=== PATIENT | female | born 1945 | race Caucasian/White ===

== ENCOUNTER → 2016-03-31 | Outpatient (CLI) | payer OTHER ==
--- NOTE | 2016-03-31 15:01 | CT ---
CT Coronary Calcium Score History: Distant history of smoking. No cancer history. Comparison: Calcium scoring study April 13, 2011. Technique: Prospectively gated noncontrast images through the chest without contrast. Dose reduction techniques were utilized. Findings: Left Main Artery (LMA): 0 Left Anterior Descending (LAD): 294 Left Circumflex (LCX): 496 Right Coronary Artery (RCA): 0 Posterior Descending Artery (PDA): 0 Calcium score according to the Agatston-Janowitz criteria is 790 which is consistent with the 90th pe rcentile for age (previously 89). This means that 10% of patients of this age group have calcium sc ore higher than this patient. Noncardiac evaluation: There are no significant pulmonary nodules. There is mild bronchiectasis in th e medial segment right middle lobe and mild basilar scarring/atelectasis. A large hiatal hernia is ag ain noted. A small hypodensity in the left lobe of the liver is not significantly changed, too small to characterize, statistically likely to represent a cyst. Impression: 1. A calcium score of 790 places the patient in the 90th percentile rank for age. There is high likel ihood of significant coronary artery stenosis. Recommend cardiology consultation. 2. Large hiatal hernia. 3. Additional findings as above. Findings discussed with Radha Morse MD 03/31/2016 at 15:09.
== END ==
LOC: CIMAGING 09:21
PROVIDERS: ATTEND Family Medicine
DX: E83.52 Hypercalcemia (principal); K44.9 Diaphragmatic hernia without obstruction or gangrene; R93.2 Abnormal findings on diagnostic imaging of liver and biliary tract; Z82.49 Family history of ischemic heart disease and other diseases of the circulatory system; Z87.891 Personal history of nicotine dependence
CPT/HCPCS: 75571-PO

== ENCOUNTER → 2016-05-17 | Outpatient (CLI) | payer OTHER | LOC: BHCLAF 13:30 | PROVIDERS: ATTEND Internal Medicine Cardiovascular Disease | DX: I25.10 Atherosclerotic heart disease of native coronary artery without angina pectoris (principal); R07.9 Chest pain, unspecified | CPT/HCPCS: 93005-PO ==

== ENCOUNTER → 2016-06-08 | Outpatient (CLI) | payer OTHER | LOC: BHFA 08:30 | PROVIDERS: ATTEND Internal Medicine Cardiovascular Disease | DX: R07.9 Chest pain, unspecified (principal) | CPT/HCPCS: 78452; 93017; A9500 ==

== ENCOUNTER → 2017-02-22 | Outpatient (CLI) | payer OTHER | LOC: CIMAGING 12:17 | PROVIDERS: ATTEND Family Medicine | DX: Z12.31 Encounter for screening mammogram for malignant neoplasm of breast (principal) ==

== ENCOUNTER → 2017-05-21 | Outpatient (CLI) | payer OTHER | LOC: FIMAGING 13:12 | PROVIDERS: ATTEND Family Medicine | DX: Z13.820 Encounter for screening for osteoporosis (principal); E07.9 Disorder of thyroid, unspecified; Z78.0 Asymptomatic menopausal state; Z82.62 Family history of osteoporosis ==

== ENCOUNTER → 2018-03-28 | Outpatient (CLI) | payer OTHER | LOC: CIMAGING 09:32 | PROVIDERS: ATTEND Family Medicine | DX: Z12.31 Encounter for screening mammogram for malignant neoplasm of breast (principal) ==